=== PATIENT | male | born 1960 | race African-American/Black ===

== ENCOUNTER 2016-08-18 02:27 | Inpatient (IN) | payer BC ==
--- NOTE | ~2016-08-18 | DS ---
Unit #: [id number] #: [id number] Patient: [facility]ARC[facility] [id number] [facility] [address] [place] [address] [id number] MR#: [id number] NAME: WILL GARCIA. ROOM: [facility] Age: 56 Sex: M Admission Date: 08/18/2016 : 1960 Discharge Date: 08/24/2016 Attending Physician: Chong Alvarez M.D. Primary Care Physician: Primary Care Physician No DISCHARGE SUMMARY IDENTIFYING DATA Mr. Garcia is a 56-year-old male, who was brought to the hospital on a mental inquest warrant taken out by his . DISCHARGE DIAGNOSES Psychiatric: Bipolar disorder, most recent episode depressed, recurrent, moderate, with psychosis. Medical: None. Stressors: Moderate psychosocial stressors. HISTORY OF PRESENT ILLNESS Please see initial psychiatric evaluation for details. PAST PSYCHIATRIC HISTORY Please see initial psychiatric evaluation for details. PAST MEDICAL HISTORY Please see initial psychiatric evaluation for details. HOSPITAL COURSE The patient was admitted to the adult psychiatric unit at [facility] and was oriented to the hospital environment. Routine p.r.n. medications were initiated, and he was started back on his home medications, and Abilify and Lexapro were initiated, and he was seen to be doing fairly well, and since he had history of poor compliance with treatment recommendation including the medication leading to rapid decompensation, it was decided that he will be a candidate for long-acting injectable antipsychotic and Abilify Maintena 400 mg intramuscular was initiated, and he was able to show a fairly decent therapeutic response, followed by which, it was decided he will be discharged home and will continue treatment on an outpatient basis. DISCHARGE CONDITION Stable. PROGNOSIS Fair. Dictated by... Chong Alvarez M.D. IAA/modl Unit #: [id number] #: [id number] Patient: WILL GARCIA TD: 10/21/2016 01:48 JOB #: [id number] DISCHARGE SUMMARY Page 1 of 1 X Chong Alvarez MD X DISCHARGE SUMMARY
--- NOTE | ~2016-08-18 | PN ---
Unit #: [id number] #: [id number] Patient: WILL BURGESS [id number] [facility] [address] [place] [address] [id number] I MR#: [id number] NAME: WILL BURGESS. ROOM: [facility] Age: 55 Sex: M Admission Date: 08/18/2016 : 1960 Attending Physician: Chong Alvarez M.D. Admitting Physician: Chong Alvarez M.D. Primary Care Physician: Primary Care Physician Jelena ZEPEDA NOTES DATE August 19, 2016 DISCUSSION Mr. Burgess is a 55-year-old male, who was seen today and chart was reviewed and the case was discussed with the staff. He has been anxious, withdrawn, depressed, and rather seclusive to himself. He has been compliant with the treatment recommendations and he did take his Abilify last night. He had an episode this morning where his blood pressure and heart rate dropped but his O2 sats and EKG were normal. He recovered on his own and he is not aware if it is related to the Abilify as he has had just one dose of that yesterday. MENTAL STATUS EXAMINATION Middle-aged male, who was casually dressed with fair personal hygiene and appears to be in no acute distress or discomfort. He was awake and alert on interaction with intact orientation. His mood is anxious with a congruent affect. His speech is slow and goal-directed. He denies any suicidal or homicidal ideations. His thought processes are disorganized with some looseness of associations. His insight and judgment remain significantly impaired. TREATMENT PLAN 1. We will continue him on his current medications and treatment protocol, and will monitor his response to the medications, and make further adjustments as needed. 2. We will continue to followup. Dictated by... Idris Aguilar/fabian TD: 08/20/2016 07:11 JOB #: [id number] Unit #: [id number] #: [id number] Patient: WILL BURGESS [facility] PROGRESS NOTES X Kim,Chong Fairchild MD X PROGRESS NOTE
--- NOTE | ~2016-08-18 | PN ---
Unit #: [id number] #: [id number] Patient: WILL BURGESS [id number] [facility] [address] [place] [address] [id number] I MR#: [id number] NAME: WILL BURGESS. ROOM: [facility] Age: 56 Sex: M Admission Date: 08/18/2016 : 1960 Attending Physician: Chong Alvarez M.D. Admitting Physician: Chong Alvarez M.D. Primary Care Physician: Primary Care Physician Jelena ZEPEDA NOTES DATE OF SERVICE: 08/21/2016 SUBJECTIVE Mr. Burgess is a 55-year-old male, who was seen today and chart was reviewed, and case was discussed with the staff. He has been anxious, withdrawn, depressed, and rather seclusive to himself. Meanwhile, he has been cooperative with the treatment recommendations and has been taking the medications and tolerating them fairly well with no reported side effects. MENTAL STATUS EXAMINATION Middle-aged male, who was casually dressed with fair personal hygiene, appears to be in no acute distress or discomfort. He was awake and alert on interaction with intact orientation. His mood was anxious with a congruent affect. His speech was slow and goal directed. He denies any suicidal or homicidal ideations, and also denies any auditory or visual hallucinations. His insight and judgment remain slightly impaired. TREATMENT PLAN 1. We will continue him on his current medications and treatment protocol. We will monitor his response and make further adjustments as needed. 2. We will continue to follow up. Dictated by... Idris Aguilar/nimo TD: 08/22/2016 01:38 JOB #: [id number] Unit #: [id number] #: [id number] Patient: WILL BURGESS [facility] PROGRESS NOTES X Chong Alvarez MD PROGRESS NOTE
--- NOTE | ~2016-08-18 | PN ---
Unit #: [id number] #: [id number] Patient: WILL BURGESS [id number] [facility] [address] [place] [address] [id number] I MR#: [id number] NAME: WILL BURGESS ROOM: [facility] Age: 56 Sex: M Admission Date: 08/18/2016 : 1960 Attending Physician: Chong Alvarez M.D. Admitting Physician: Chong Alvarez M.D. Primary Care Physician: Primary Care Physician Jelena ZEPEDA NOTES DATE 08/22/2016 DISCUSSION Mr. Burgess is a 56-year-old, male who was seen today and chart was reviewed and case was discussed with the staff. He has been anxious, withdrawn though has not shown any agitation, irritability and has been cooperative with the treatment recommendations. He has been taking the medication and tolerating them fairly well with no reported side effects. MENTAL STATUS EXAM Middle-aged male who was dressed with fair personal hygiene, appears to be in no acute distress or discomfort. He was awake and alert on interaction with intact orientation. His mood was anxious with congruent affect. He denies any suicidal or homicidal ideation. His insight and judgement remains slightly impaired. TREATMENT PLAN We will continue him on his current medications and treatment protocol. We will monitor his response to the medication and make further adjustments as needed. Dictated by... Idris Aguilar/moraima TD: 08/24/2016 02:06 JOB #: [id number] [facility] X Chong Alvarez MD PROGRESS NOTE
--- NOTE | ~2016-08-18 | EKG ---
PATIENT: WILL BURGESS UNIT #: [id number] Ventricular Rate: 66 BPM Atrial Rate: 66 BPM P-R Interval: 206 ms QRS Duration: 104 ms Q-T Interval: 400 ms QTC Calculation(Bezet): 419 ms P Pratt: 80 degrees Calculated R Pratt: 51 degrees Calculated T Pratt: 61 degrees Diagnosis Line: Normal sinus rhythm Diagnosis Line: Normal ECG Diagnosis Line: No previous ECGs available Diagnosis Line: Confirmed by MARIALUISA MAST MD ([id number]) on Diagnosis Line: 08/19/2016 11:28:45 AM INTERPRETING MD: KEZIA PERSAUD
--- NOTE | ~2016-08-18 | HP ---
Unit #: [id number] #: [id number] Patient: CHUCKY BURGESS [id number] [place] [address] [id number] I MR#: [id number] NAME: CHUCKY BURGESS. ROOM: [facility] Age: 55 Sex: M Admission Date: 08/18/2016 : 1960 Attending Physician: Chong Alvarez M.D. Admitting Physician: Chong Alvarez M.D. Primary Care Physician: Primary Care Physician No HISTORY AND PHYSICAL HISTORY OF PRESENT ILLNESS Chucky is a 55 year old admitted to [facility] on a NJW taken out by his because of his angry belligerent psychotic behavior. He is a poor historian so his history is taken from his chart. PAST MEDICAL HISTORY Obesity PAST SURGICAL HISTORY Nothing reported ALLERGIES No known drug allergies. SOCIAL HISTORY Smokes one pack per day. Denies alcohol and illicit drug use. FAMILY HISTORY Medically noncontributory. REVIEW OF SYSTEMS He does not answer questions appropriately. There are no reports of nausea, vomiting or diarrhea. He has had no cough or increased temperature. CURRENT MEDICATIONS 1. Lexapro 10 mg daily 2. Abilify 10 mg daily 3. Nicotine patch 14 mg daily 4. Milk of Magnesia p.r.n. 5. Maalox p.r.n. 6. Tylenol p.r.n. PHYSICAL EXAMINATION GENERAL: Alert, obese, in no apparent distress. VITAL SIGNS: Blood pressure 110/70, heart rate 80, respirations 16, temperature 98.6. WEIGHT: 180 pounds. HEIGHT: 5'6". SKIN: Warm and dry without rash or lesion. HEENT: Normocephalic. TMs not viewed. Oral and nasal passages clear. Conjunctivae clear. Pupils equal, round and reactive to light and Unit #: [id number] #: [id number] Patient: CHUCKY BURGESS accommodation. Extraocular movements intact. NECK: Supple without lymphadenopathy or thyromegaly. HEART: Regular rate and rhythm without murmur. LUNGS: Clear. ABDOMEN: Soft, nontender. : Not done. EXTREMITIES: No evidence of cyanosis, clubbing or edema. Moves all extremities without focal deficit. NEUROLOGICAL: Grossly within normal limits. Cranial Nerves: II: Visual rodriguez are intact. III, IV AND : Extraocular movements are intact. Pupils are equal, round and reactive to light. V: Facial sensation is grossly normal. VII: Facial movements and expression are normal. VIII: Auditory acuity grossly intact. IX, X: Uvula is midline. Phonation is normal. XI: Patient shrugs shoulders and turns head normally. XII: Tongue protrudes in the midline. Sensory and Motor Function: Sensory and motor sensation is grossly normal. Motor: moves all extremities well. Coordination: Gait is normal. Deep Tendon Reflexes: Intact. IMPRESSION Psychiatric admission RECOMMENDATIONS PSYCHIATRIC: Per psychiatrist. MEDICAL: I see no contraindications to participating in facility's activities. MEDICAL PROGNOSIS Good. MEDICAL CONDITION Stable. Dictated by... Jenny Garcia P.A.-C. for Idris Rodriguez/moraima TD: 08/18/2016 23:59 JOB #: [id number] HISTORY AND PHYSICAL X Jenny Garcia X HISTORY AND PHYSICAL
--- NOTE | ~2016-08-18 | PA ---
Unit #: [id number] #: [id number] Patient: WILL GARCIA [id number] [facility] [address] [place] [address] [id number] I MR#: [id number] NAME: WILL GARCIA ROOM: [facility] Age: 55 Sex: M Admission Date: 08/18/2016 : 1960 Date of Assessment: Attending Physician: Chong Alvarez M.D. Admitting Physician: Chong Alvarez M.D. Primary Care Physician: Primary Care Physician No PSYCHIATRIC ASSESSMENT IDENTIFYING DATA Mr. Garcia is a 55 years old, , male, who is a resident of [place], [place] and is known to us from previous encounter, and was transferred to us from [facility] at [facility]. CHIEF COMPLAINT "My anger and my depression." HISTORY OF PRESENT ILLNESS Mr. Garcia is a 55-year-old male, who was taken to the [facility] on a mental inquest warrant taken out by his and the petitioner stated that the patient will not take medication and has weapons in the home and told her "bitch, I'm going to fuck you up." The petitioner also stated the patient will talk to people who are not there and will go days without sleeping and is argumentative and has a history of suicide and also makes statements that he has tapped up the appliances and phones in the house and that she is not able to call out of the home and was seen for evaluation. The patient denied making any threats towards his , stated that she has not been diagnosed with bipolar or schizophrenia, tells us that she has been diagnosed with depression and admits that he has not been taking his medications including Risperdal and Wellbutrin on a regular basis telling that he felt the medication was causing him to be sluggish and states that he does have a shotgun at home, but denies that it needed a petitioner and also stated that he is not tapping the appliances and that he is not allowing his to use a phone. He was seen to be rather calm and cooperative with the evaluation and did exhibit some rapid rambling speech and admits to not taking his medications as prescribed. Collateral indicated the patient has also been taking the light bulbs out of the ceiling fans because he thinks that he is being watched by the bulbs when they are on. He was seen to be in a manic and psychotic phase and as such, recommendation for inpatient level of care was made. The MIW was upheld in the [facility] and then he was transferred to us. SUBSTANCE ABUSE HISTORY The patient denies any alcohol or drug abuse. PAST PSYCHIATRIC HISTORY The patient has had a history of inpatient psychiatric hospitalization at [facility] and has been diagnosed and treated for bipolar disorder, has been off his medication and records indicate that he has been on Risperdal, Wellbutrin and Latuda Unit #: [id number] #: [id number] Patient: WILL GARCIA in the past. PAST MEDICAL HISTORY No acute or chronic medical illness. ALLERGIES No known medication allergies. CURRENT MEDICATIONS None. PERSONAL AND SOCIAL HISTORY A 55-year-old male, who reports that he is and lives at home with his and has fairly decent social support system. MENTAL STATUS EXAMINATION Middle-aged male, who was casually dressed with fair personal hygiene, appears to be in no acute distress or discomfort. He was awake and alert on interaction with intact orientation to time, place, and person. His mood was anxious and depressed with a congruent affect. His speech was slow and goal directed. His thought processes were disorganized with some looseness of associations and paranoid ideations. His insight and judgment remain significantly impaired. DIAGNOSTIC IMPRESSION Psychiatric: Bipolar disorder, most recent episode, mixed with psychosis. Medical: None. Stressors: Moderate psychosocial stressors. TREATMENT PLAN 1. The patient has presented with a history of mood disorder and psychosis and has been decompensating. We will need inpatient hospitalization for safety and stabilization. We will start him back on his home medications. We will adjust the medications and monitor response. 2. Supportive therapy was provided to the patient. 3. Safe, structured, and nourishing environment will be provided. ESTIMATED LENGTH OF STAY 5 to 7 days. ABILITY TO HELP SELF Limited. WILLINGNESS TO HELP SELF The patient appears to be willing to help self. STRENGTHS 1. Communicative. 2. Cooperative. PROBLEMS 1. Chronic dysphoric symptoms. 2. Poor social support system. DISCHARGE CRITERIA This will be contingent upon the patient's ability to show resolution of his depression and psychosis and his ability to stay safe to himself, particularly after discharge from the hospital. Unit #: [id number] #: [id number] Patient: WILL GARCIA Dictated by... Idris Aguilar/nimo TD: 08/19/2016 04:03 JOB #: [id number] PSYCHIATRIC ASSESSMENT X Chong Alvarez MD PSYCHIATRIC ASSESSMENT
--- NOTE | ~2016-08-18 | PN ---
Unit #: [id number] #: [id number] Patient: WILL BURGESS [id number] [facility] [address] [place] [address] [id number] I MR#: [id number] NAME: WILL BURGESS ROOM: [facility] Age: 55 Sex: M Admission Date: 08/18/2016 : 1960 Attending Physician: Chong Alvarez M.D. Admitting Physician: Chong Alvarez M.D. Primary Care Physician: Primary Care Physician Jelena ZEPEDA NOTES DATE OF SERVICE: 08/20/2016 SUBJECTIVE The patient is a 35-year-old male, who was seen today and chart was reviewed, and case was discussed with the staff. He was seen to be anxious, withdrawn, and rather seclusive to himself. Meanwhile, he has not shown any agitation or irritability, and did go to the MIW court yesterday and was able to sign and agreed the order with judgement. MENTAL STATUS EXAMINATION Middle-aged male, who was casually dressed with fair personal hygiene, appears to be in no acute distress or discomfort. He was awake and alert on interaction with intact orientation. His mood was anxious with a congruent affect. He denies any suicidal or homicidal ideations. His insight and judgment remain slightly impaired. TREATMENT PLAN 1. We will continue him on his current medications and treatment protocol. We will monitor his response to the medications and make further adjustments as needed. 2. We will continue to follow up. Dictated by... Idris Aguilar/nimo TD: 08/21/2016 07:16 JOB #: [id number] [facility] PROGRESS NOTES X Chong Alvarez MD PROGRESS NOTE
--- NOTE | ~2016-08-18 | PN ---
Unit #: [id number] #: [id number] Patient: WILL BURGESS [id number] [facility] [address] [place] [address] [id number] I MR#: [id number] NAME: WILL BURGESS ROOM: [facility] Age: 56 Sex: M Admission Date: 08/18/2016 : 1960 Attending Physician: Chong Alvarez M.D. Admitting Physician: Chong Alvarez M.D. Primary Care Physician: Primary Care Physician Jelena ZEPEDA NOTES DATE OF SERVICE: 08/23/2016 SUBJECTIVE Mr. Burgess is a 26-year-old male, who was seen today and chart was reviewed, and case was discussed with the staff. He has been anxious, withdrawn, though has not shown any agitation or irritability. He has been cooperative with treatment recommendations and has been taking the medications and tolerating them fairly well with no reported side effects. MENTAL STATUS EXAMINATION Middle-aged male, who was casually dressed with fair personal hygiene, appears to be in no acute distress or discomfort. He was awake and alert on interaction with intact orientation. His mood was anxious with a congruent affect. He denies any suicidal or homicidal ideations. His insight and judgment remain slightly impaired. TREATMENT PLAN We will continue him on his current medications and treatment protocol. We will monitor his response to the medications and make further adjustments as needed. Dictated by... Idris Aguilar/nimo TD: 08/24/2016 06:00 JOB #: [id number] [facility] PROGRESS NOTES X Chong Alvarez MD PROGRESS NOTE
[2016-08-18 12:53] LABS: THYROID STIMULATING HORMONE 0.18 uIU/ml (0.34-5.60)
[2016-08-18 12:59] LABS: FREE THYROXIN (T4) 1.02 ng/dL (0.58-1.64)
[2016-08-20 13:27] LABS: URINE APPEARANCE CLEAR; URINE BILIRUBIN NEG (NEG); URINE BLOOD NEG (NEG); URINE COLOR YELLOW; URINE GLUCOSE NEG (NEG); URINE KETONE NEG (NEG); URINE LEUKOCYTE ESTERASE NEG (NEG); URINE NITRATE NEG (NEG); URINE PROTEIN NEG (NEG); URINE SPECIFIC GRAVITY 1.025 (1.003-1.035); URINE UROBILINOGEN 0.2 MG/DL (NEG)
[2016-08-20 14:18] LABS: AMPHETAMINE POS (NEG); BARBITURATES NEG (NEG); BENZODIAZEPINES NEG (NEG); COCAINE NEG (NEG); MARIJUANA NEG (NEG); OPIATES NEG (NEG); TRICYCLIC ANTIDEPRESSANTS NEG (NEG); U METHADONE NEG (NEG)
== END 2016-08-24 14:00 | disposition home or self-care (01) | DRG 885 ==
LOC: P2L 02:27
PROVIDERS: Psychiatry & Neurology Psychiatry
DX: F31.60 Bipolar disorder, current episode mixed, unspecified (principal); F17.210 Nicotine dependence, cigarettes, uncomplicated
CPT/HCPCS: 80307; 81003; 82947; 84439; 84443; 93005